=== PATIENT | female | born 1980 | race Caucasian/White ===

== ENCOUNTER 2020-03-13 21:18 | Observation (INO) ==
[2020-03-13] MEDS ORDERED: ONDANSETRON 4 MG/2 ML VIAL ONE (21:57)
[2020-03-13] MEDS ORDERED: fentaNYL 100 MCG/2 ML VIAL ONE (21:57)
[2020-03-13] MEDS ORDERED: ONDANSETRON 4 MG/2 ML VIAL IV PRN (21:59)
[2020-03-13] MEDS ORDERED: LACTATED RINGERS 1,000 ML IV SCH (22:00)
[2020-03-13] MEDS: fentaNYL 100 MCG/2 ML VIAL IV PRN (22:22)
[2020-03-13] MEDS: CLINDAMYCIN INJ 900 MG in PREMIX 1 EACH IV SCH (22:32)
[2020-03-13] MEDS ORDERED: ALBUTEROL 2.5 MG/3 ML NEB RESP TX PRN (23:45)
[2020-03-14] MEDS ORDERED: VANCOMYCIN INJ 2,500 MG in SODIUM CHLORIDE 0.9% 500 ML IV ONE
[2020-03-14] MEDS ORDERED: ALBUTEROL 2.5 MG/3 ML NEB RESP TX PRN (00:13)
[2020-03-14] MEDS: fentaNYL 100 MCG/2 ML VIAL IV PRN ×2 (01:07→05:24)
[2020-03-14 05:51] LABS: Basophils # 0.1 10*3/uL (0.0-0.2); Basophils % 0.4 % (0.0-0.8); Eosinophils # 0.6 10*3/uL (0.0-0.87); Hematocrit 39.8 VOL% (35.7-47.0); Hemoglobin 12.5 GM/DL (12.0-16.0); Immature Granulocytes % 0.9 %; Lymphocytes # 2.8 10*3/uL (1.4-4.0); Lymphocytes % 24.1 % (21.3-54.2); Mean Corpuscular HGB Conc 31.4 GM/DL (32-36); Mean Corpuscular Volume 88.6 FL (87-102); Monocytes % 7.6 % (1.7-12.7); Platelet Count 296 T/CUMM (130-400); Red Blood Count 4.49 MC/CUMM (3.8-5.5); Red Cell Distribution Width 14.5 % (9.3-17.3); White Blood Count 11.4 T/CUMM (4-12)
[2020-03-14 06:02] LABS: PT Patient Result 10.9 SECS (9.8-11.9); Partial Thromboplastin Time 32.6 SECS (23.9-33.8)
[2020-03-14] MEDS ORDERED: MORPHINE 4 MG/1 ML VIAL IV PRN (06:07)
[2020-03-14 06:31] LABS: Calcium 8.7 MG/DL (8.5-10.1); Osmolality,Calculated 276.5 MOS/KG (273-304)
[2020-03-14 08:09] VITALS: BP 105/68
[2020-03-14] MEDS: CLINDAMYCIN INJ 900 MG in PREMIX 1 EACH IV SCH (08:34)
[2020-03-14] MEDS ORDERED: VANCOMYCIN INJ 1,500 MG in SODIUM CHLORIDE 0.9% 500 ML IV SCH (12:00)
== END 2020-03-14 11:30 | disposition home or self-care (01) ==
LOC: EDUNIT# → N.ED 21:18 → N.EDINP 21:18 → N.3E 22:24
PROVIDERS: ADMIT Surgery; ATTEND Surgery